=== PATIENT | female | born 1985 | race Caucasian/White ===

== ENCOUNTER 2016-09-03 21:52 | Emergency (ER) | payer MEDICAID ==
[~2016-09-03] VITALS: Ht 162.6 cm; Wt 60.8 kg
[~2016-09-03 21:52] MED LIST: FLUO40CA8 PO; HYDR-3326 PO; LEVO750T21 PO; METR500T PO; PREG150C PO
--- NOTE | 2016-09-03 21:55 | NUR ---
PT C/O ABD PAIN, PT STATES SHE DRANK 1 BOTTLE OF CHARDONNAY AND TOOK PAIN MEDICATION ON AN EMPTY STOMACH. PLACED ON MONITOR.AWAITING MD ORDER
--- NOTE | 2016-09-03 22:44 | NUR ---
CALLED ANGELA, , AT [phone], SAID IT WAS NOT HIM "WRONG NUMBER"
--- NOTE | 2016-09-03 23:43 | NUR ---
GAVE REPORT TO APRIL FOR ASHLEY
--- NOTE | 2016-09-04 00:45 | NUR ---
INTERMITTENTLY WAKES UP AND FALLS RIGHT BACK TO SLEEP. DENEIS ANY SX'S AT THIS TIME. RESP EVEN AND UNLABORED.
--- NOTE | 2016-09-04 01:10 | NUR ---
REMAINS RESTING WITH NO S/S OF DISTRESS. RESP EVEN AND UNLABORED.
--- NOTE | 2016-09-04 02:04 | NUR ---
NO NEW CHANGES FROM PREVIOUS ASSESSMENT. RESP EVEN AND UNLABORED. STILL MONITORED.
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
--- NOTE | 2016-09-04 04:10 | NUR ---
REASSESSED AND APPEARS IN NO DISTRESS AT THIS TIME.
--- NOTE | 2016-09-04 05:07 | NUR ---
Patient discharged to home in stable condition. Denies any sx's at this time. Written and verbal after care instructions given. Patient verbalizes understanding of instruction. Ambulatory with a steady gait accompanied by S/O.
[2016-09-04 05:08] VITALS: BP 117/70
== END 2016-09-04 05:09 | disposition home or self-care (01) ==
LOC: ER 21:54
DX: F10.129 Alcohol abuse with intoxication, unspecified (principal); F41.9 Anxiety disorder, unspecified; M79.7 Fibromyalgia; Z87.442 Personal history of urinary calculi; Z88.0 Allergy status to penicillin; Z88.2 Allergy status to sulfonamides; M50.223 Other cervical disc displacement at C6-C7 level; N83.209 Unspecified ovarian cyst, unspecified side
CPT/HCPCS: 82962-TC; A4606; Z7610

== ENCOUNTER 2017-10-29 12:41 | Emergency (ER) | payer MEDICAID, OTHER ==
[~2017-10-29] VITALS: Ht 162.6 cm; Wt 52.2 kg
[~2017-10-29 12:41] MED LIST changes: -HYDR-3326 PO; +HYDR-3974 PO
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
[2017-10-29] MEDS ORDERED: ACETAMINOPHEN ES 500 MG TABLET PO ONE (13:30)
[2017-10-29 13:42] LABS: BASOPHILS % (AUTO) 0.5 % (0.0-2.0); EOSINOPHILS % (AUTO) 0.8 % (0.0-6.0); HEMATOCRIT 40 % (33-45); LYMPHOCYTES # (AUTO) 1.4 /CMM (0.8-4.8); LYMPHOCYTES % (AUTO) 15.9 % (20.0-44.0); MEAN CORPUSCULAR HEMOGLOBIN 26 PG (26.0-33.0); MEAN CORPUSCULAR HGB CONC 33 g/dl (31.0-36.0); MEAN CORPUSCULAR VOLUME 79 fL (82-100); MONOCYTES # (AUTO) 0.4 /CMM (0.1-1.30); MONOCYTES % (AUTO) 4.7 % (2.0-12.0); NEUTROPHILS # (AUTO) 7.1 /CMM (1.8-8.9); NEUTROPHILS % (AUTO) 78.1 % (43.0-81.0); PLATELET COUNT (AUTO) 346 /CMM (150-450); RED BLOOD CELL COUNT(AUTO) 4.99 MIL/uL (4.0-5.2)
--- NOTE | 2017-10-29 13:42 | NUR ---
CALLED [facility], SPOKE WITH SHOOK SPLICER [phone], SHE INFORMED ME SHE DOES NOT SEE ANY REPORT FILED BY PT TODAY AND SHE WILL SEND OFFICERS OUT, NO ETA GIVEN.
[2017-10-29 13:50] LABS: CALCIUM, SERUM 8.7 mg/dL (8.5-10.1); CREATININE 0.6 mg/dL (0.6-1.3); POTASSIUM 3.6 mmol/L (3.5-5.1)
[2017-10-29] MEDS ORDERED: ACETAMINOPHEN ES 500 MG TABLET ONE (13:56)
--- NOTE | 2017-10-29 14:14 | NUR ---
Iona carter in [facility] - 10/29/17 at 1415 by BARRY [facility]ODRIGUE[facility] (BADGE # [id number])
--- NOTE | 2017-10-29 14:15 | NUR ---
[employer] OFFICER MICHAEL (MARCO # [id number]) AT BS.
--- NOTE | 2017-10-29 15:15 | NUR ---
Patient discharged to home in stable condition. Written and verbal after care instructions given. Patient verbalizes understanding of instruction.
[2017-10-29 15:27] VITALS: BP 122/78
== END 2017-10-29 15:28 | disposition home or self-care (01) ==
LOC: ER 12:49
DX: O99.320 Drug use complicating pregnancy, unspecified trimester (principal); F11.10 Opioid abuse, uncomplicated; F19.10 Other psychoactive substance abuse, uncomplicated; F10.10 Alcohol abuse, uncomplicated; F41.9 Anxiety disorder, unspecified; Z88.0 Allergy status to penicillin; Z88.2 Allergy status to sulfonamides; Z88.1 Allergy status to other antibiotic agents; Y90.9 Presence of alcohol in blood, level not specified; Z87.442 Personal history of urinary calculi; Z3A.00 Weeks of gestation of pregnancy not specified
CPT/HCPCS: 36415; 80048; 84702; 85025; 99284; A4606; Z7610

== ENCOUNTER 2018-02-21 19:36 | Emergency (ER) | payer OTHER ==
--- NOTE | 2018-02-21 19:55 | NUR ---
Patient does not wish to proceed with medical care recommended by Dr. BERGER ). Patient given information related to possible complications, up to and including , which could occur as a result of leaving the hospital at this time. Patient verbalizes understanding of risks involved due to leaving against medical advice. Patient has signed AMA form.
== END 2018-02-21 19:56 | disposition left against medical advice (07) ==
LOC: ER 19:38
DX: O99.315 Alcohol use complicating the puerperium (principal); O99.345 Other mental disorders complicating the puerperium; F41.9 Anxiety disorder, unspecified; Z88.0 Allergy status to penicillin; Z88.2 Allergy status to sulfonamides; Z88.1 Allergy status to other antibiotic agents; Z87.442 Personal history of urinary calculi; M48.02 Spinal stenosis, cervical region; Z90.89 Acquired absence of other organs
CPT/HCPCS: Z7502

== ENCOUNTER 2019-03-14 23:42 | Emergency (ER) | payer SELFPAY ==
[~2019-03-14] VITALS: Ht 162.6 cm; Wt 54.4 kg
[2019-03-15 00:12] VITALS: BP 123/88
[2019-03-15] MEDS ORDERED: ONDANSETRON HCL/PF 4 MG/2 ML VIAL ONE (01:14)
[2019-03-15] MEDS ORDERED: MORPHINE SULFATE INJ 4 MG/ML DISP.SYRIN ONE (01:14)
[2019-03-15] MEDS ORDERED: MORPHINE SULFATE INJ 10 MG/ML DISP.SYRIN IM ONE (01:30)
[2019-03-15] MEDS ORDERED: ONDANSETRON HCL/PF - ER 4 MG/2 ML VIAL IM ONE (01:30)
--- NOTE | 2019-03-15 01:35 | NUR ---
PATIENT ELOPED FROM EMERGENCY DEPARTMENT AFTER RECEIVING PAIN MEDICATION. MD LOZANO
== END 2019-03-15 01:36 | disposition left against medical advice (07) ==
LOC: ER 23:46
DX: G89.18 Other acute postprocedural pain (principal); F41.9 Anxiety disorder, unspecified; M79.7 Fibromyalgia; Z87.442 Personal history of urinary calculi; Z98.890 Other specified postprocedural states; Z90.89 Acquired absence of other organs; Z88.0 Allergy status to penicillin; Z88.2 Allergy status to sulfonamides; Z88.1 Allergy status to other antibiotic agents; Z79.899 Other long term (current) drug therapy
CPT/HCPCS: 96372 ×2; 99283; J2270; J2405 ×2

== ENCOUNTER 2020-10-20 16:06 | Emergency (ER) | payer OTHER ==
[~2020-10-20] VITALS: Ht 170.2 cm; Wt 73.5 kg
--- NOTE | 2020-10-20 16:06 | NUR ---
PT BIB SELF C/O NECK PAIN STARTED LAST NIGHT. PT IS 7MONS . PT IS AAOX4, NOT IN RESPRIATORY DISTRESS, HOOKED TO MEDICAL LEAD, KEPT RESTED AND COMFORTABLE. WILL CONTINUE TO MONITOR.
--- NOTE | 2020-10-20 16:34 | NUR ---
SEEN AND EXAMINED BY DENISE LEON.
[2020-10-20] MEDS ORDERED: ACETAMINOPHEN ES 500 MG TABLET ONE (16:39)
--- NOTE | 2020-10-20 16:40 | NUR ---
IV LINE ESTABLISHED BLOOD DRAWN AND SENT TO LAB.
[2020-10-20 16:41] LABS: BILIRUBIN,URINE SMALL (NEGATIVE); COLOR,URINE YELLOW (YELLOW); LEUKOCYTE ESTERASE ,URINE Small (NEGATIVE); NITRITE, URINE Positive (NEGATIVE); PROTEIN,URINE 30 mg/dl (NEGATIVE); UGLUCOSE Negative (NEGATIVE); UROBILINOGEN,URINE 0.2 EU/dL (0.2)
[2020-10-20 16:47] LABS: BACTERIA,URINE Moderate /HPF (None Seen); SQUAMOUS EPITHELIAL CELL,UR Moderate /HPF (None Seen)
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
[2020-10-20 16:52] LABS: BASOPHILS # (AUTO) 0.1 /CMM (0.0-0.2); BASOPHILS % (AUTO) 0.9 % (0.0-2.0); EOSINOPHILS % (AUTO) 0.9 % (0.0-6.0); HEMATOCRIT 30 % (33-45); HEMOGLOBIN 9.1 g/dL (11.5-14.8); LYMPHOCYTES # (AUTO) 1.9 /CMM (0.8-4.8); LYMPHOCYTES % (AUTO) 12.9 % (20.0-44.0); MEAN CORPUSCULAR HGB CONC 30 g/dl (31.0-36.0); MEAN CORPUSCULAR VOLUME 71 fL (82-100); MONOCYTES # (AUTO) 0.9 /CMM (0.1-1.30); MONOCYTES % (AUTO) 5.8 % (2.0-12.0); NEUTROPHILS % (AUTO) 79.5 % (43.0-81.0); PLATELET COUNT (AUTO) 329 /CMM (150-450); RED BLOOD CELL COUNT(AUTO) 4.27 MIL/uL (4.0-5.2); WHITE BLOOD COUNT (AUTO) 15.1 K/uL (4.3-11.0)
[2020-10-20 16:58] LABS: CALCIUM, SERUM 8.7 mg/dL (8.5-10.1); CREATININE 0.8 mg/dL (0.6-1.3); POTASSIUM 3.5 mmol/L (3.5-5.1)
[2020-10-20] MEDS ORDERED: ACETAMINOPHEN 325 MG TABLET PO ONE (17:00)
[2020-10-20] MEDS ORDERED: LIDOCAINE 5% (PATCH) 1 EA PATCH TP SCH (17:00)
[2020-10-20] MEDS ORDERED: IV NS 0.9% 1,000 ML BAG IV ONE (17:00)
[2020-10-20 17:03] LABS: ALBUMIN 2.8 g/dL (3.4-5.0); BILIRUBIN,DIRECT 0.1 mg/dL (0.0-0.2); BILIRUBIN,TOTAL 0.5 mg/dL (0.2-1.0); TOTAL PROTEIN, SERUM 7.2 g/dL (6.4-8.2)
[2020-10-20] MEDS ORDERED: NITROFURANTOIN/NITROFURAN MONOHYDRATE 100 MG CAPSULE PO ONE (18:00)
[2020-10-20] MEDS ORDERED: NITROFURANTOIN/NITROFURAN MONOHYDRATE 100 MG CAPSULE ONE (18:02)
--- NOTE | 2020-10-20 18:07 | NUR ---
IV removed. Catheter intact and site benign. Pressure and 4x4 applied to site. No bleeding noted. Patient discharged to home in stable condition. Written and verbal after care instructions given. Patient verbalizes understanding of instruction.
[2020-10-20] MEDS ORDERED: NITR100C PO (18:08)
[2020-10-20 18:44] VITALS: BP 126/82
== END 2020-10-20 18:45 | disposition home or self-care (01) ==
LOC: ER 16:18
DX: O23.42 Unspecified infection of urinary tract in pregnancy, second trimester (principal); O99.012 Anemia complicating pregnancy, second trimester; D50.9 Iron deficiency anemia, unspecified; O26.892 Other specified pregnancy related conditions, second trimester; D72.829 Elevated white blood cell count, unspecified; M54.2 Cervicalgia; G89.29 Other chronic pain; O99.342 Other mental disorders complicating pregnancy, second trimester; F41.9 Anxiety disorder, unspecified; Z3A.26 26 weeks gestation of pregnancy; Z90.89 Acquired absence of other organs; Z98.890 Other specified postprocedural states; Z88.0 Allergy status to penicillin; Z88.2 Allergy status to sulfonamides; Z88.1 Allergy status to other antibiotic agents; Z79.899 Other long term (current) drug therapy
CPT/HCPCS: 36415; 76856; 80048; 80076; 81001; 83690; 85025; 87086; 96360; 99284; J7030

== ENCOUNTER 2024-08-14 07:16 | Emergency (ER) | payer MEDICAID, OTHER ==
[~2024-08-14] VITALS: Ht 162.6 cm; Wt 70.3 kg
[~2024-08-14 07:16] MED LIST changes: +NITR100C PO
[2024-08-14] MEDS ORDERED: CLIN300C12 PO (07:57)
[2024-08-14] MEDS ORDERED: DOXY100C2 PO (07:57)
[2024-08-14] MEDS ORDERED: NAPR-1164 PO (07:57)
[2024-08-14 08:51] VITALS: BP 140/88; TEMP 98.6; O2SAT 100
== END 2024-08-14 08:52 | disposition home or self-care (01) ==
LOC: ER 07:29
DX: K13.0 Diseases of lips (principal); F41.9 Anxiety disorder, unspecified; M79.7 Fibromyalgia; Z79.899 Other long term (current) drug therapy; Z88.0 Allergy status to penicillin; Z88.2 Allergy status to sulfonamides; Z90.49 Acquired absence of other specified parts of digestive tract